=== PATIENT | female | born 1940 | race Two or more races ===

== ENCOUNTER → 2016-12-21 | Day surgery (SDC) | payer MEDICARE, MEDICAID ==
[2016-12-21] VITALS (7 sets, daily range): BP systolic 113–156; BP diastolic 58–72; PULSE 66–85; RESP 18–30
[~2016-12-21] VITALS: Ht 152.4 cm; Wt 45.0 kg
[~2016-12-21] MED LIST: AMLO-147 PO; CARB200T43 PO; CLON-339 PO; CLON1TAB28 PO; CLOP75TA28 PO; DICY10CA60 PO; EPHEDrine SULFATE 50 MG/5 ML SYG ONE; FENTAnyl 50 MCG/ML VIAL ONE; INFLUENZA VIRUS VACCINE 0.5 ML (DISPENSING) IM* ONE; IODIXANOL LOCM 100 ML BTL ONE; LIDOCAINE 1% (MDV) 20 ML INJ ONE; LOSA50TA6 PO; MIDAZOLAM 1 MG/ML 2 ML INJ ONE; MIRT15TA5 PO; NITROGLYCERIN (IC) 100 MCG/ML INJ ONE; NITROGLYCERIN (SL) 0.4 MG TAB ONE; OXYB10TA PO; SOD CHLORIDE 0.9% 1,000 ML IV SCH; VERAPAMIL 5 MG INJ ONE
[2016-12-21 12:18] LABS: ADD SCAN DIFF NO
[2016-12-21 12:23] LABS: BASOPHILS % 0.3 % (0.0-2.0); EOSINOPHILS # 0.1 10^3/ul (0.0-0.5); EOSINOPHILS % 1.9 % (0.0-7.0); HEMATOCRIT 39.9 % (37.0-47.0); HEMOGLOBIN 13.8 g/dl (12.0-16.0); LYMPHOCYTES # 1.4 10^3/ul (0.8-2.9); LYMPHOCYTES % 24.7 % (15.0-51.0); MEAN CORPUSCULAR HEMOGLOBIN 32.2 pg (29.0-33.0); MEAN CORPUSCULAR HGB CONC 34.6 g/dl (32.0-37.0); MEAN CORPUSCULAR VOLUME 93.2 fl (82.0-101.0); MEAN PLATELET VOLUME 10.2 fl (7.4-10.4); MONOCYTE # 0.3 10^3/ul (0.3-0.9); MONOCYTES % 4.9 % (0.0-11.0); NEUTROPHIL # 3.9 10^3/ul (1.6-7.5); NEUTROPHILS % 67.9 % (39.0-77.0); PLATELET COUNT 249 10^3/UL (140-415); RED BLOOD COUNT 4.28 10^6/ul (4.20-5.40); RED CELL DISTRIBUTION WIDTH 12.6 % (11.5-14.5); WHITE BLOOD COUNT 5.8 10^3/ul (4.8-10.8)
[2016-12-21 12:32] LABS: INR 0.98
[2016-12-21 12:33] LABS: PARTIAL THROMBOPLASTIN TIME 31.5 Sec (25.0-35.0)
[2016-12-21 12:35] LABS: CALCIUM 9.1 mg/dl (8.4-10.2); CREATININE 0.5 mg/dl (0.44-1.00); POTASSIUM 3.8 mmol/L (3.5-5.1)
[2016-12-21 14:00] LABS: CREATININE 0.51 mg/dl (0.44-1.00); POTASSIUM 3.8 mmol/L (3.5-5.1)
--- NOTE | 2016-12-21 14:54 | PDOCDIS ---
Discharge Instructions CONDITION Patient Condition: Good HOME CARE INSTRUCTIONS: Diet Instructions: Low Fat /Cholesterol ACTIVITY: Activity Restrictions: Avoid heavy lifting (x 2 days) Do not Drive (x 2 days) Wilfred Matson DO Dec 21, 2016 14:54
--- NOTE | 2016-12-21 15:28 | CARRPT ---
DATE OF PROCEDURE: 12/21/2016 PROCEDURES 1. Selective right coronary angiogram. 2. Aortic pressure measurements. 3. Left radial artery approach. PATIENT HISTORY: This is a 76-year-old female who presents with symptoms of shortness of breath and abnormal stress test. FINDINGS: 1. RCA is a medium caliber vessel and is dominant with distal 10% diffuse stenosis. 2. Aortic blood pressure was 142/62. DESCRIPTION OF PROCEDURE: The patient was brought to the quality assurance/r&d lab technician after informed consent. The louise ent was prepped and draped as per protocol. Right femoral artery was accessed with a needle, but un able to further advance the wire. This was removed and pressure was held. Given the evidence of oc clusion of the right iliac, left radial access was obtained. A 5/6-Dutch sheath was placed. We us ed a 5-Dutch JR4 catheter to cannulate the RCA. There was significant spasming noted and was quite difficult to torque the catheter. The patient also complained of pain in her left forearm. The ca theter was removed. The patient was given Versed and fentanyl, nitroglycerin sublingual as well as intra-arterial. Unfortunately, the patient is still with significant spasm. We were unable to even advance a 5-Dutch JL3.5 diagnostic catheter in the RCA due to severe spasm. There was still flow seen but a catheter would not advance because of severe spasm. Given the severe discomfort and pain and the risks of complications, no further attempts were no further attempts were made. The wire a nd catheter were removed. Sheath was removed and a TR band was placed in the left radial artery. A TR band was placed on the left wrist. The patient's arm pain resolved by the end of the procedure. DIAGNOSIS: Mild nonobstructive coronary artery disease in the visualized artery. COMPLICATIONS: None. ESTIMATED BLOOD LOSS: Minimal. RECOMMENDATIONS: Aggressive medical management. The procedure was performed in collaboration with Dr. Leong as well as myself, Dr. Matson. Dictated By: CATHRYN SANCHEZ/ANN-MARIE Conf#: [id number] DID#: [id number]
--- NOTE | 2016-12-26 17:39 | RADRPT ---
Vent Rate: 72 bpm RR Interval: 0 msec ID Interval: 148 msec QRS Duration: 82 msec QT Interval: 416 msec QTC Interval: 455 msec P-R-T [place]: 69 - 12 - 48 degrees Normal sinus rhythm Normal ECG Electronically Signed By: Perry Byrd [id number]
== END | disposition home or self-care (01) ==
LOC: SDS 08:53
PROVIDERS: ATTEND Internal Medicine Cardiovascular Disease
DX: I25.10 Atherosclerotic heart disease of native coronary artery without angina pectoris (principal); R94.39 Abnormal result of other cardiovascular function study
CPT/HCPCS: 80048; 82565; 84132; 85025; 85610; 85730; 93005; 93454; C1769; C1887; C1894; J1644; J2250; J3010; Q9967; 90686